=== PATIENT | female | born 1955 | race Caucasian/White ===

== ENCOUNTER 2021-08-30 16:35 | Emergency (ER) | payer BC ==
[2021-08-30 16:46] VITALS: BP 140/79; TEMP 99.2; BMI 19.2
[2021-08-30] MEDS ORDERED: BEBTELOVIMAB (EUA) 175 MG/2 ML VIAL IVPUSH ONE (17:53)
[2021-08-30 20:44] VITALS: PULSE 86
== END 2021-08-30 20:44 | disposition home or self-care (01) ==
LOC: JER 16:35
DX: U07.1 COVID-19 (principal)
CPT/HCPCS: 99284-25; Q0222